=== PATIENT | male | born 1995 | race Caucasian/White ===

== ENCOUNTER 2018-06-10 19:56 | Emergency (ER) | payer OTHER ==
--- NOTE | 2018-06-10 20:16 | EDM.PDOC ---
ED HPI GENERAL MEDICAL PROBLEM - General Chief Complaint: Upper Extremity Injury/Pain Stated Complaint: RT WRIST PAIN Time Seen by Provider: 06/10/18 20:00 Source of Information: Reports: Patient History Limitations: Reports: No Limitations - History of Present Illness INITIAL COMMENTS - FREE TEXT/NARRATIVE: Berto is a 23-year-old employee of [email or web address] was pulling on a bungee cord and it snapped (broke) and resulted in his right dominant ulnar surface striking a metal hook forcefully and has marked pain in his wrist. No loss of sensation or laceration. But he has extensive pain and difficulty moving his wrist. He does chew his fingernails. She is a smoker of 1 pack per day. He has stopped using methamphetamine (smoking) since October 2017. right wrist Pain Score (Numeric/FACES): 7 - Related Data Allergies Allergy/AdvReac Type Severity Reaction Status Date / Time No Known Allergies Allergy Verified 06/10/18 20:10 Home Meds: Home Meds NK [No Known Home Meds] 06/10/18 [History] Review of Systems - Review of Systems Review Of Systems: ROS reveals no pertinent complaints other than HPI. ED EXAM, GENERAL - Physical Exam Exam: See Below Free Text/Narrative:: Pleasant interactive young man who has moderate pain in his right dominant hand/ wrist lateral ulnar fist. He has a cradle with his other arm is reluctant to move his wrist. No compromise and sensation. He has pain moving his fingers because there some much discomfort that radiates to his wrist with any finger motion. His nails on his fingers are slightly shorter than normal.. Exam Limited By: No Limitations General Appearance: Alert, Moderate Distress Eye Exam: Bilateral Eye: Normal Inspection Nose: Normal Inspection, Normal Mucosa, No Blood Throat/Mouth: Normal Inspection, Normal Lips, Normal Teeth, Normal Gums, Normal Oropharynx, Normal Voice, No Airway Compromise Head: Atraumatic, Normocephalic Neck: Normal Inspection, Supple, Non-Tender, Full Range of Motion Cardiovascular: Normal Peripheral Pulses, Regular Rate, Rhythm, No Edema, No Gallop, No JVD, No Murmur, No Rub Peripheral Pulses: 1+: Brachial (L), Brachial (R) GI/Abdominal: Normal Bowel Sounds, Soft, Non-Tender, No Organomegaly, No Distention, No Abnormal Bruit, No Mass (Male) Exam: Deferred Rectal (Males) Exam: Deferred Back Exam: Normal Inspection Extremities: Normal Inspection, Other (He has moderate pain in his right dominant hand/wrist lateral ulnar surface. He has cradled his right wrist with his other arm and is reluctant to move his wrist. No compromise and sensation. He has pain moving his fingers because there is some much discomfort that radiates to his wrist with any finger motion. His nails on his fingers are slightly shorter than normal..) Neurological: Alert, Oriented, CN II-XII Intact, Normal Cognition, Normal Gait, Normal Reflexes, No Motor/Sensory Deficits Psychiatric: Normal Affect, Normal Mood Skin Exam: Warm, Dry, Intact, Normal Color, No Rash Course - Vital Signs Last Recorded V/S: Last Vital Signs Temp 36.8 C 06/10/18 20:00 Pulse 99 06/10/18 20:00 Resp 17 06/10/18 20:00 BP 142/78 H 06/10/18 20:00 Pulse Ox 100 06/10/18 20:00 - Orders/Labs/Meds Orders: Active Orders 24 hr Category Date Time Status Wrist Comp Min 3V Rt [CR] Stat Exams 06/10/18 20:22 Taken Departure - Departure Time of Disposition: 20:20 (Working diagnosis: Contusion, his hand ulnar surface rule out periosteal hematoma. Diagnosis after x-ray completed no fracture. No suggestion hematoma in the bone.) Disposition: Home, Self-Care 01 Condition: Good Clinical Impression: Contusion of bone, Work related injury, History of methamphetamine use - Discharge Information Instructions: Wrist Splint, Adult Referrals: PCP,None [Primary Care Provider] - Forms: ED Department Discharge Additional Instructions: Diagnosis contusion right radius. Limited use pushing pulling and lifting until cleared on Thursday06/14/18 1000 mg tylenol and ibuprofen every 6 hour for pain. - My Orders Last 24 Hours: My Active Orders 06/10/18 20:22 Wrist Comp Min 3V Rt [CR] Stat - Assessment/Plan Last 24 Hours: My Active Orders 06/10/18 20:22 Wrist Comp Min 3V Rt [CR] Stat
--- NOTE | 2018-06-11 10:50 | CR ---
INDICATION: Trauma. RIGHT WRIST: Three views of the right wrist revealed deviation of the volar fat pad slightly, which suggests the possibility of a small wrist joint effusion. No other significant bone or joint abnormality was identified - no fracture or dislocation was seen. MTDD
== END 2018-06-10 21:09 | disposition home or self-care (01) ==
LOC: FB.ED 19:56
DX: S60.211A Contusion of right wrist, initial encounter (principal); Y99.0 Civilian activity done for income or pay; F15.90 Other stimulant use, unspecified, uncomplicated; W22.8XXA Striking against or struck by other objects, initial encounter
CPT/HCPCS: 73110-RT; 99000; 99283-25

== ENCOUNTER 2018-11-15 23:02 | Day surgery (SDC) | payer BC, OTHER ==
[2018-11-15] MEDS ORDERED: Sodium Chloride 0.9% 10 ML Syringe FLUSH PRN (23:25)
[2018-11-15] MEDS ORDERED: Sodium Chloride 0.9% 1,000 ML IV SCH (23:30)
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
[2018-11-15] MEDS ORDERED: Propofol 200 MG/20 ML SDV IV ONE (23:35)
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
[2018-11-15] MEDS ORDERED: Lactated Ringers 1,000 ML IV ONE (23:50)
--- NOTE | 2018-11-16 00:36 | PCM.OPNOTE ---
- General Post-Op/Procedure Note Date of Surgery/Procedure: 11/16/18 Operative Procedure(s): egd with removal of impacted food Findings: food bolus at 20 cm hiatal hernia 10 cm of stomach in the chest Pre Op Diagnosis: food impaction Post-Op Diagnosis: food bolus at 20 cm. hiatal hernia. 10 cm of stomach in the chest Anesthesia Technique: MAC Primary Surgeon: Gwyn Cadena Anesthesia Provider: Ricardo Knowles Complications: None Condition: Good Free Text/Narrative:: see dictation
--- NOTE | 2018-11-16 00:53 | OR ---
DATE OF OPERATION: 11/16/2018 SURGEON: Gwyn Cadena MD PROCEDURE PERFORMED: Removal of food impaction. PREOPERATIVE DIAGNOSIS: Impacted food bolus. POSTOPERATIVE DIAGNOSIS: Impacted food bolus. INDICATIONS FOR PROCEDURE: This is a 23-year-old white male who presented to the emergency room approximately an hour and a half after eating some [place] food at [facility] [email or web address]. He apparently had some impacted food and was unable to swallow and control of saliva. This is a repeat episode for him. He apparently has had several EGDs in [place]. This has happened 3 times before. DESCRIPTION OF OPERATION: After an excellent IV sedation was administered, bite block was inserted and flexible endoscope was passed down the patient's esophagus. At approximately 20 cm, we encountered an impacted chicken food bolus. This was broken up with graspers and Ayala net and removed. We were able eventually to remove the bolus. The scope was advanced to the stomach and to the duodenum. No marked abnormality was noted in the duodenum and the stomach. It is evident that he has a hiatal hernia with approximately 10 cm of the stomach in the chest. GE junction measured approximately 30 cm and approximately 10 cm above what appeared to be the diaphragm. No marked stricture was noted in the patient's esophagus. The patient tolerated the procedure well and will be discharged later this evening. /[id number]
== END 2018-11-16 01:15 | disposition home or self-care (01) ==
LOC: FB.ED 23:02 → FB.SDS 23:34
PROVIDERS: ATTEND Surgery
DX: T18.128A Food in esophagus causing other injury, initial encounter (principal); F17.210 Nicotine dependence, cigarettes, uncomplicated
CPT/HCPCS: 43247; 96360; 99284; J2704; J7120

== ENCOUNTER 2018-12-01 12:10 | Emergency (ER) | payer BC ==
--- NOTE | 2018-12-01 12:29 | EDM.PDOC ---
ED HPI GENERAL MEDICAL PROBLEM - General Stated Complaint: BACK PAIN Time Seen by Provider: 12/01/18 12:29 Source of Information: Reports: Patient History Limitations: Reports: No Limitations - History of Present Illness INITIAL COMMENTS - FREE TEXT/NARRATIVE: 23-year-old male who was helping his friend replace his roof and was pulling some shingles off of the roof and fell off the roof at approximately 10:45 AM today. The house is a two-story house and he fell from the roof to the ground which was a grass covered ground. He landed on his right mid back area and thinks he may have hit his head but he had no loss of consciousness. He did have the "wind knocked out of him". He has had no problems breathing since then except it does increase the pain in his right mid back when he takes a deep breath. He has had no hemoptysis. He has had no nausea or vomiting. He rates the pain as 7-8/10. It is worse with deep breath and with movement and with palpation. He did have urine output prior to coming in and reported there was no blood in his urine. He denies any abdominal pain. He has no neck pain. He has no arm or leg weakness. He is ambulatory into the emergency department. There are no other associated signs or symptoms. There are no other modifying factors. 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 - Past Surgical History Head Surgeries/Procedures: Reports: Craniotomy HEENT Surgical History: Reports: Tonsillectomy Other HEENT Surgeries/Procedures: EGD for food bolus stuck GI Surgical History: Reports: EGD (Multiple EGDs related to his Manning's esophagus and impacted food) Social & Family History - Tobacco Use Smoking Status *Q: Current Every Day Smoker - Caffeine Use Caffeine Use: Reports: Coffee, Energy Drinks, Soda - Alcohol Use Alcohol Use History: Yes Alcohol Use Frequency: Rarely - Recreational Drug Use Recreational Drug Use: Yes Recreational Drug Type: Reports: Amphetamines (Speed) (Clean and sober since 2018.) - Living Situation & Occupation Occupation: Employed (works at [employer]) ED ROS GENERAL - Review of Systems Review Of Systems: See Below Constitutional: Reports: No Symptoms HEENT: Reports: No Symptoms Respiratory: Reports: No Symptoms Cardiovascular: Reports: Chest Pain (Right posterior chest pain) GI/Abdominal: Reports: No Symptoms : Reports: No Symptoms (Reports he had clear, yellow urine just prior to coming in) Musculoskeletal: Reports: Back Pain (Right mid back and posterior chest pain) Skin: Reports: No Symptoms Neurological: Reports: No Symptoms (No loss consciousness) Hematologic/Lymphatic: Reports: No Symptoms Immunologic: Reports: No Symptoms ED EXAM, GENERAL - Physical Exam Exam: See Below Exam Limited By: No Limitations General Appearance: Alert, WD/WN, Moderate Distress, Other (Awake, alert and appropriate.) Eye Exam: Bilateral Eye: EOMI, Normal Inspection, PERRL Ears: Normal External Exam, Hearing Grossly Normal Ear Exam: Bilateral Ear: Auricle Normal Nose: Normal Inspection, Normal Mucosa, No Blood Throat/Mouth: Normal Inspection, Normal Lips, Normal Oropharynx, Normal Voice, No Airway Compromise Head: Atraumatic, Normocephalic Neck: Normal Inspection, Supple, Non-Tender, Full Range of Motion, Other (Full active range of motion in his neck without any problems.) Respiratory/Chest: No Respiratory Distress, Lungs Clear, Normal Breath Sounds, No Accessory Muscle Use, Other (Tender over right posterior chest/mid back) Cardiovascular: Normal Peripheral Pulses, Regular Rate, Rhythm, No Murmur Peripheral Pulses: 2+: Radial (L), Radial (R) GI/Abdominal: Normal Bowel Sounds, Soft, No Mass, Tender (Mildly tender in his right upper abdomen that seems to really be in his back when he presses on his abdomen. He is nontender elsewhere in his abdomen) Back Exam: Paraspinal Tenderness (On the right posterior chest area and mid back area. No crepitus. No subcutaneous emphysema.) Extremities: Normal Inspection, Normal Range of Motion, Non-Tender, No Pedal Edema, Normal Capillary Refill Neurological: Alert, Oriented, CN II-XII Intact, Normal Cognition, No Motor/ Sensory Deficits Skin Exam: Warm, Dry, Intact, Normal Color, No Rash Course - Orders/Labs/Meds Orders: Active Orders 24 hr Category Date Time Status Chest Abdomen Pelvis w Cont [CT] Stat Exams 12/01/18 13:14 Taken Sodium Chloride 0.9% [Saline Flush] Med 12/01/18 12:38 Active 10 ml FLUSH ASDIRECTED PRN Peripheral IV Insertion Adult [OM.PC] Routine Oth 12/01/18 12:38 Ordered Medication Orders Sodium Chloride (Saline Flush) 10 ml FLUSH ASDIRECTED PRN PRN Reason: Keep Vein Open Labs: Laboratory Tests 12/01/18 12/01/18 12/01/18 Range/Units 12:55 12:55 13:12 WBC 7.7 (4.5-12.0) X10-3/uL RBC 5.38 (4.30-5.75) x10(6)uL Hgb 17.1 (13.5-17.8) g/dL Hct 49.8 (30.0-51.3) % MCV 92.6 (80-96) fL MCH 31.8 (27.7-33.6) pg MCHC 34.4 (32.2-35.4) g/dL RDW 11.9 (11.5-15.5) % Plt Count 289 (125-369) X10(3)uL MPV 8.8 (7.4-10.4) fL Neut % (Auto) 57.0 (46-82) % Lymph % (Auto) 29.3 (13-37) % Hays % (Auto) 5.6 (4-12) % Eos % (Auto) 7 H (1.0-5.0) % Baso % (Auto) 1 (0-2) % Neut # (Auto) 4.4 (1.6-8.3) # Lymph # (Auto) 2.3 (0.6-5.0) # Hays # (Auto) 0.4 (0.0-1.3) # Eos # (Auto) 0.5 (0.0-0.8) # Baso # (Auto) 0.1 (0.0-0.2) # Sodium 140 (135-145) mmol/L Potassium 3.9 (3.5-5.3) mmol/L Chloride 104 (100-110) mmol/L Carbon Dioxide 28 (21-32) mmol/L BUN 5 L (7-18) mg/dL Creatinine 1.0 (0.70-1.30) mg/dL Est Cr Clr Drug Dosing TNP Estimated GFR (MDRD) > 60 (>60) BUN/Creatinine Ratio 5.0 L (9-20) Glucose 127 H (80-116) mg/dL Calcium 8.6 (8.6-10.2) mg/dL Total Bilirubin 0.5 (0.1-1.3) mg/dL AST 11 (5-25) IU/L ALT 22 (12-36) U/L Alkaline Phosphatase 113 H (56-112) IU/L Total Protein 6.5 (6.0-8.0) g/dL Albumin 3.7 (3.5-5.2) g/dL Globulin 2.8 g/dL Albumin/Globulin Ratio 1.3 Amylase 40 (25-115) U/L Urine Color Yellow (YELLOW) Urine Appearance Clear (CLEAR) Urine pH 6.0 (5.0-6.5) Ur Specific Wilkinson 1.015 (1.010-1.025) Urine Protein Negative (NEGATIVE) mg/dL Urine Glucose (UA) Normal (NORMAL) mg/dL Urine Ketones Negative (NEGATIVE) mg/dL Urine Occult Blood Negative (NEGATIVE) Urine Nitrite Negative (NEGATIVE) Urine Bilirubin Negative (NEGATIVE) Urine Urobilinogen Normal (NEGATIVE) mg/dL Ur Leukocyte Esterase Moderate H (NEGATIVE) Urine WBC 10-20 H (0-5) Ur Squamous Epith Cells Few H (NS,R,O) Urine Bacteria Moderate H (NS) Meds: Medications Generic Name Dose Route Start Last Admin Trade Name Freq PRN Reason Stop Dose Admin Sodium Chloride 10 ml 12/01/18 12:38 Saline Flush FLUSH ASDIRECTED PRN Keep Vein Open Discontinued Medications Generic Name Dose Route Start Last Admin Trade Name Gale PRN Reason Stop Dose Admin Sodium Chloride 1,000 mls @ 999 mls/hr 12/01/18 12:42 12/01/18 13:15 Normal Saline IV 12/01/18 13:42 999 mls/hr .BOLUS ONE Administration Iopamidol 100 ml 12/01/18 12:52 12/01/18 13:07 Isovue-370 (76%) IV 12/01/18 12:53 90 ml . DIRECTED ONE Administration Ketorolac Tromethamine 30 mg 12/01/18 13:26 12/01/18 13:41 Toradol IVPUSH 12/01/18 13:27 30 mg ONETIME ONE Administration - Radiology Interpretation Free Text/Narrative:: CT scan of the chest, abdomen and pelvis showed no acute abnormality in the chest. No thoracic or lumbar spinal fractures. He did have possible thickening of some loops of the jejunum but there was no free fluid and there is no hematoma and the radiologist felt this may be a nonspecific finding. - Re-Assessments/Exams Free Text/Narrative Re-Assessment/Exam: 12/01/18 14:00: The patient has remained vitally stable. His O2 saturations are normal. I did establish an IV and gave the patient normal saline 1 L as a bolus and he was also given Toradol 30 mg IV. This did help his pain somewhat. His blood tests are reassuringly normal. The CT scan of his chest, abdomen and pelvis showed really no acute and really other than the possible thickening of the jejunal loops but no evidence of trauma. I reexamine the patient's abdomen and he really has no abdominal tenderness except in his right upper abdomen which there is no evidence of liver injury and it may be referred pain to his right mid back. I will call and discuss this with the general surgeon automation operator, Dr. Knight. 12/01/18 14:20: I discussed the patient's case with Dr. Knight and he felt that the CT findings are nonspecific and did not correlate with the patient's injury pattern and with a benign abdominal exam he felt the patient could be discharged home. I discussed this with the patient and he is in agreement with the plans for discharge. I will discharge the patient with a prescription for hydrocodone 5/325 to be used for moderate to severe pain and he may also take ibuprofen for pain as well. I will give the patient 2 days off work. Appropriate precautions and instructions for return to the Emergency Department were given to the patient. Departure - Departure Time of Disposition: 14:48 Disposition: Home, Self-Care 01 Condition: Good (Stable) Clinical Impression: Fall from building Qualifiers: Encounter type: initial encounter Qualified Code(s): W13.9XXA - Fall from, out of or through building, not otherwise specified, initial encounter Contusion of right side of mid back Qualifiers: Encounter type: initial encounter Qualified Code(s): S20.221A - Contusion of right back wall of thorax, initial encounter - Discharge Information Prescriptions: Hydrocodone/Acetaminophen [[place] 5-325 Tablet] 1 - 2 tab PO Q6H PRN #14 tablet PRN Reason: Moderate to severe pain Instructions: Contusion, [id number] Forms: ED Return to Work/School Form Additional Instructions: Your blood tests were reassuringly normal. Your urine test showed no evidence of blood but there was some evidence of infection. You do not have any signs or symptoms of an infection. I did send the urine for culture and if it is positive , we will call you. The CT scans of your chest, abdomen and pelvis which also looked at your thoracic and lumbar spine areas showed no evidence of fracture. As we discussed, there was the nonspecific possible thickening of some of your small bowel intestinal loops but you have no symptoms which support a problem here nor does the trauma you sustained usually cause any kind of problems with your intestines. You should rest. I have given you 2 days off of work and then 3 days of light duty following that. You may take ibuprofen as needed for pain. Medication as prescribed for more severe pain (hydrocodone 5/325). The emergency department for marked increase in pain, trouble breathing, coughing of blood, abdominal pain, unrelenting vomiting, blood in your urine or any other concerning sign or symptom. - My Orders Last 24 Hours: My Active Orders 12/01/18 12:38 Sodium Chloride 0.9% [Saline Flush] 10 ml FLUSH ASDIRECTED PRN Peripheral IV Insertion Adult [OM.PC] Routine 12/01/18 13:14 Chest Abdomen Pelvis w Cont [CT] Stat - Assessment/Plan Last 24 Hours: My Active Orders 12/01/18 12:38 Sodium Chloride 0.9% [Saline Flush] 10 ml FLUSH ASDIRECTED PRN Peripheral IV Insertion Adult [OM.PC] Routine 12/01/18 13:14 Chest Abdomen Pelvis w Cont [CT] Stat
[2018-12-01] MEDS ORDERED: Sodium Chloride 0.9% 10 ML Syringe FLUSH PRN (12:38)
[2018-12-01] MEDS ORDERED: Sodium Chloride 0.9% 1,000 ML IV ONE (12:42)
[2018-12-01] MEDS ORDERED: Iopamidol 755 Mg/ML 100 ML Bottle IV ONE (12:52)
[2018-12-01] MEDS ORDERED: Ketorolac 30 MG/ML SDV IVPUSH ONE (13:26)
--- NOTE | 2018-12-01 15:02 | CT ---
INDICATION: Back and abdominal pain after falling off the roof of a 2-story house. CT CHEST, ABDOMEN, AND PELVIS WITH CONTRAST: Spiral 3.75 mm axial sections were obtained through the chest, abdomen, and pelvis with 90 mL Isovue 370 at 2.1 mL/second, with sagittal and coronal reconstructions, 12/01/18 - no comparisons. Total exam DLP = 617.91 mGy-cm. CT CHEST: Examination of the chest, as noted above, revealed the heart to be normal in size. No pericardial effusion was seen. No mediastinal mass was identified. Major vessels appear to be intact with no leakage identified. No evidence of an active infiltrate, effusion, contusion, or pneumothorax was identified. No displaced fracture site was identified. Spine and ribs appear to be grossly intact. IMPRESSION: Normal CT chest with contrast. CT ABDOMEN AND PELVIS: Examination of the abdomen and pelvis was obtained by CT as noted above. The appendix appeared normal, visualized on axial images #58 through #64 and coronal image #41. No evidence of free air or bowel obstruction was seen. Thickening of the wall of the loops of jejunum, especially proximally, is noted. This is of questionable significance with many etiologies possible. This should be correlated clinically, therefore. Findings would include the possibility of posttraumatic change, as well as Giardia lamblia infestation. The aorta and major vessels appear to be grossly intact. The liver, spleen, gallbladder, adrenals, kidneys, and pancreas appear to be normal. No retroperitoneal mass was seen. Urinary bladder appeared to be intact. No organomegaly, mass lesions, or free fluid collections were identified in the abdomen or pelvis. No displaced fracture site was identified. Bony structures appear to be grossly intact with a minimal tilt of the spine to the left. IMPRESSION: 1. CT of abdomen and pelvis neg for definite posttraumatic change identified. 2. Thickening of the wall of the loops of jejunum, especially proximally, is noted. This is of questionable significance with many etiologies possible. This should be correlated clinically, therefore. Findings would include the possibility of posttraumatic change, as well as Giardia lamblia infestation. Report was called to Dr. Carrillo at 1404 hours on 12/01/18. [facility]
== END 2018-12-01 15:00 | disposition home or self-care (01) ==
LOC: FB.ED 12:10
DX: S20.221A Contusion of right back wall of thorax, initial encounter (principal); K21.9 Gastro-esophageal reflux disease without esophagitis; F17.200 Nicotine dependence, unspecified, uncomplicated; Z79.899 Other long term (current) drug therapy; W13.2XXA Fall from, out of or through roof, initial encounter
CPT/HCPCS: 36415; 71260; 74177; 80053; 81001; 82150; 85025; 87086; 96361; 96374; 99284-25; J1885; J7030; Q9967

== ENCOUNTER 2019-01-22 19:50 | Day surgery (SDC) | payer BC ==
[~2019-01-22 19:50] MED LIST: Lidocaine 2% 5 ML SDV IV ONE; Midazolam 1 MG/ML 2 ML SDV IV ONE; Propofol 200 MG/20 ML SDV IV ONE
--- NOTE | 2019-01-22 20:55 | EDM.PDOC ---
ED HPI GENERAL MEDICAL PROBLEM - General Chief Complaint: General Stated Complaint: FOOD STUCK IN THROAT Time Seen by Provider: 01/22/19 20:54 Source of Information: Reports: Patient History Limitations: Reports: No Limitations - History of Present Illness INITIAL COMMENTS - FREE TEXT/NARRATIVE: 24-year-old male who reports at 6:30 PM tonight he was eating a hot pocket with pepperoni and when he swallowed he felt that it stuck in his throat. He has had this happen many times in the past and reports that this is the same feeling that he has had before. He is not having any trouble breathing but he is unable to swallow even his own saliva. He has retched multiple times and has been unable to remove anything while doing this. He has some discomfort in his chest at his sternal notch. He feels that this is where the food is stuck. He states that this is always the place where he feels the discomfort. He rates the pain as moderate. He had apparently been eating and drinking normally prior to this. There are no other associated signs or symptoms. There are no other modifying factors. 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 - Past Surgical History Head Surgeries/Procedures: Reports: Craniotomy HEENT Surgical History: Reports: Tonsillectomy GI Surgical History: Reports: EGD (Multiple EGDs related to his Manning's esophagus and impacted food) Social & Family History - Family History Family Medical History: Noncontributory - Tobacco Use Smoking Status *Q: Current Every Day Smoker - Caffeine Use Caffeine Use: Reports: Coffee, Energy Drinks, Soda - Alcohol Use Alcohol Use History: No - Living Situation & Occupation Living situation: Reports: with Significant Other Occupation: Employed (works at [employer]) ED ROS GENERAL - Review of Systems Review Of Systems: See Below Constitutional: Reports: No Symptoms HEENT: Reports: No Symptoms Respiratory: Reports: No Symptoms Cardiovascular: Reports: Chest Pain (Feeling of something stuck in his esophagus ) GI/Abdominal: Reports: Nausea, Vomiting Musculoskeletal: Reports: No Symptoms Skin: Reports: No Symptoms Neurological: Reports: No Symptoms Hematologic/Lymphatic: Reports: No Symptoms Immunologic: Reports: No Symptoms ED EXAM, GENERAL - Physical Exam Exam: See Below Exam Limited By: No Limitations General Appearance: Alert, WD/WN, Moderate Distress Eye Exam: Bilateral Eye: EOMI, Normal Inspection, PERRL Ears: Normal External Exam, Hearing Grossly Normal Ear Exam: Bilateral Ear: Auricle Normal Nose: Normal Inspection, Normal Mucosa, No Blood Throat/Mouth: Normal Voice, No Airway Compromise, Other (Somewhat dry membranes) Head: Atraumatic, Normocephalic Neck: Normal Inspection, Supple, Non-Tender, Full Range of Motion Respiratory/Chest: No Respiratory Distress, Normal Breath Sounds, No Accessory Muscle Use, Chest Non-Tender, Wheezing (Scattered wheezes that clear with cough. ) Cardiovascular: Normal Peripheral Pulses, Regular Rate, Rhythm, No JVD Peripheral Pulses: 2+: Radial (L), Radial (R) GI/Abdominal: Normal Bowel Sounds, Soft, Non-Tender, No Mass Back Exam: Normal Inspection Extremities: Normal Inspection, Normal Range of Motion, Non-Tender, No Pedal Edema, Normal Capillary Refill Neurological: Alert, Oriented, CN II-XII Intact, Normal Cognition, No Motor/ Sensory Deficits Psychiatric: Other (Somewhat angry) Skin Exam: Warm, Dry, Intact, Normal Color, No Rash Course - Vital Signs Last Recorded V/S: Last Vital Signs Temp 36.1 C 01/22/19 23:05 Pulse 83 01/22/19 23:05 Resp 16 01/22/19 23:05 BP 119/66 01/22/19 23:05 Pulse Ox 98 01/22/19 23:05 - Orders/Labs/Meds Orders: Active Orders 24 hr Category Date Time Status Sodium Chloride 0.9% [Normal Saline] 1,000 ml Med 01/22/19 22:55 Active IV ASDIRECTED Sodium Chloride 0.9% [Saline Flush] Med 01/22/19 21:32 Active 10 ml FLUSH ASDIRECTED PRN Peripheral IV Insertion Adult [OM.PC] Routine Oth 01/22/19 21:32 Ordered Medication Orders Sodium Chloride (Normal Saline) 1,000 mls @ 150 mls/hr IV ASDIRECTED ROSA ISELA Last Admin: 01/22/19 22:55 Dose: 150 mls/hr Sodium Chloride (Saline Flush) 10 ml FLUSH ASDIRECTED PRN PRN Reason: Keep Vein Open Meds: Medications Generic Name Dose Route Start Last Admin Trade Name Freq PRN Reason Stop Dose Admin Sodium Chloride 1,000 mls @ 150 mls/hr 01/22/19 22:55 01/22/19 22:55 Normal Saline IV 150 mls/hr ASDIRECTED ROSA ISELA Administration Sodium Chloride 10 ml 01/22/19 21:32 Saline Flush FLUSH ASDIRECTED PRN Keep Vein Open Discontinued Medications Generic Name Dose Route Start Last Admin Trade Name Freq PRN Reason Stop Dose Admin Glucagon 1 mg 01/22/19 22:27 01/22/19 22:46 Glucagen IVPUSH 01/22/19 22:28 1 mg ONETIME ONE Administration Sodium Chloride 1,000 mls @ 999 mls/hr 01/22/19 21:32 01/22/19 21:50 Normal Saline IV 01/22/19 22:32 999 mls/hr .BOLUS ONE Administration Lorazepam 0.5 mg 01/22/19 22:27 01/22/19 22:43 Ativan IVPUSH 01/22/19 22:28 0.5 mg ONETIME ONE Administration - Re-Assessments/Exams Free Text/Narrative Re-Assessment/Exam: 01/22/19 21:30: Patient with signs and symptoms of impacted food in his esophagus. I did call and discussed patient's case with Dr. Dooley and he has directed that I call the OR crew and he would be coming to see the patient. We had established an IV for the patient and will be given the patient IV normal saline bolus. Initially when I went to see the patient, he was outside smoking a cigarette. When I did see the patient, he was quite upset cause of day and was somewhat verbally to toward me. It was very busy at the time that he presented and I tried to explain this to the patient but he continued to be quite upset. We will continue to try to provide the best care possible for this patient. Although, I have instructed him to try to calm down and restrain from any further obscenities toward the staff. 01/22/19 22:33: Dr. Dooley has seen the patient, however, there is an emergency being performed now. Therefore, the EGD on the patient has been delayed secondary to this. I discussed with the patient giving medications to try to help relax his esophagus to get this food impaction to pass and he is willing to give this a try. Therefore, the patient will receive glucagon 1 mg and Ativan 0.5 mg IV and after 5-10 minutes he will be given small amount of carbonated beverage by mouth. 01/22/19 23:00: Patient has received the glucagon and Ativan IV and he attempted to swallow a small amount of carbonated beverage approximate 5 minutes after these medications were given and the patient had vomiting and was unable to pass any fluids. At this point, we will keep the patient nothing by mouth. We will not try any other attempts to help the patient pass the obstruction on his own and will await Dr. Dooley and definitive EGD treatment. Departure - Departure Time of Disposition: 23:55 Disposition: Refer to Observation Condition: Good (Stable) Clinical Impression: Impacted esophageal foreign body Qualifiers: Encounter type: initial encounter Qualified Code(s): T18.108A - Unspecified foreign body in esophagus causing other injury, initial encounter - Discharge Information Referrals: PCP,None [Primary Care Provider] - Forms: ED Department Discharge - My Orders Last 24 Hours: My Active Orders 01/22/19 21:32 Sodium Chloride 0.9% [Saline Flush] 10 ml FLUSH ASDIRECTED PRN Peripheral IV Insertion Adult [OM.PC] Routine 01/22/19 22:55 Sodium Chloride 0.9% [Normal Saline] 1,000 ml IV ASDIRECTED - Assessment/Plan Last 24 Hours: My Active Orders 01/22/19 21:32 Sodium Chloride 0.9% [Saline Flush] 10 ml FLUSH ASDIRECTED PRN Peripheral IV Insertion Adult [OM.PC] Routine 01/22/19 22:55 Sodium Chloride 0.9% [Normal Saline] 1,000 ml IV ASDIRECTED
[2019-01-22] MEDS ORDERED: Sodium Chloride 0.9% 1,000 ML IV ONE (21:32)
[2019-01-22] MEDS ORDERED: Sodium Chloride 0.9% 10 ML Syringe FLUSH PRN (21:32)
[2019-01-22] MEDS ORDERED: Glucagon,Human Recombinant 1 MG Vial IVPUSH ONE (22:27)
[2019-01-22] MEDS ORDERED: LORazepam 2 MG/ML SDV IVPUSH ONE (22:27)
[2019-01-22] MEDS ORDERED: Sodium Chloride 0.9% 1,000 ML IV SCH (22:55)
--- NOTE | 2019-01-23 00:35 | PCM.OPNOTE ---
- General Post-Op/Procedure Note Date of Surgery/Procedure: 01/23/19 Operative Procedure(s): Esophagogastroscopy with removal of esophgeal foreign body Findings: Food bolus lodged in distal esophagus distal esophageal inflammation with distal esophageal stenosis Pre Op Diagnosis: Esophageal foreign body Post-Op Diagnosis: Same Anesthesia Technique: MAC Primary Surgeon: Sandro Doloey Pathology: none EBL in mLs: 0 Complications: None Condition: Good
--- NOTE | 2019-01-23 02:03 | HP ---
ADMISSION DATE: 01/22/2019 HISTORY OF PRESENT ILLNESS: This 24-year-old male was eating hot pocket tonight approximately 6:30 when he noted food got stuck in his esophagus, and he feels as if that food is still lodged there. Since that episode, he has not been able to swallow his saliva. He does complain of pain in the upper chest and throat area, but denies any respiratory difficulty. The patient states that he frequently has dysphagia with eating and he has had multiple previous episodes where upper endoscopy was required to dislodge food boluses from his esophagus. The last time was in October of this year. PAST MEDICAL HISTORY: His past medical history shows his only routine medication is Prilosec. He has no known drug allergies. He has had multiple previous extremity surgeries. He denies any previous problems with anesthesia. SOCIAL HISTORY: The patient is not . He works at [employer]. REVIEW OF SYSTEMS: He denies any recent acute cold or sore throat symptoms. He does note a chronic cough for several months. He has had no chest pain or palpitations. Generally, his appetite is satisfactory. PHYSICAL EXAM: GENERAL: The patient is an alert and adult male. He is in no acute distress. His voice is normal. There is no indication of respiratory distress or dyspnea. NECK: Supple. No cervical masses or cervical tenderness. HEART: Regular. LUNGS: Clear. ABDOMEN: Soft, nontender. EXTREMITIES: Show no edema. IMPRESSION: Foreign body of the esophagus. RECOMMENDATIONS: Advised EGD for removal of esophageal foreign body. I have discussed the proposed operative procedure with the patient. Indications and risks reviewed. He agrees to proceed. This will be performed when the operating room is available nancy. /[id number] LAMONT/LAURENL
--- NOTE | 2019-01-23 02:14 | OR ---
DATE OF OPERATION: 01/23/2019 SURGEON: Sandro Dooley MD PREOPERATIVE DIAGNOSIS: Esophageal foreign body (food). POSTOPERATIVE DIAGNOSIS: Esophageal foreign body (food). OPERATION PERFORMED: Esophagogastroscopy with removal of esophageal foreign body. INDICATIONS FOR SURGERY: This 24-year-old male has developed obstruction of his esophagus secondary to food, which he was eating recently. This is a recurring problem for this patient and he has had to have removal of food boluses from his esophagus several times in the past. FINDINGS: The patient has a bolus of food in the distal aspect of his esophagus. The esophagus does show evidence of inflammation in its distal 5cm. There is some generalized narrowing in this area, which appears to be secondary to benign inflammation. There is no evidence of extrinsic esophageal compression or other intrinsic lesion. The stomach mucosa as viewed, appeared unremarkable. PROCEDURE IN DETAIL: The patient was taken to the procedure room. He was given intravenous sedation and the esophagus was intubated with the Olympus gastroscope under direct visualization. As the scope was carefully advanced, the food bolus was identified in the lower portion of the esophagus and using gentle pressure with the gastroscope, the food bolus was able to be easily pushed down through the distal esophagus and on into the gastric lumen. Repeated examination of the esophagus did not show any additional food bolus in the esophagus. It appeared to be all advanced down into the stomach and examination of the esophageal lining did not show any indication of esophageal injury. The gastroscope was then removed and the patient was taken from the procedure room in satisfactory condition. ESTIMATED BLOOD LOSS: Zero. COMPLICATIONS: None. PROGNOSIS: Good. /[id number] LAMONT/KOFI HARPERD
== END 2019-01-23 01:20 | disposition home or self-care (01) ==
LOC: FB.ED 19:50 → FB.SDS 01-23 00:15 → FB.ED 01-23 01:20
PROVIDERS: ATTEND Surgery
DX: T18.108A Unspecified foreign body in esophagus causing other injury, initial encounter (principal); K21.9 Gastro-esophageal reflux disease without esophagitis; Z88.8 Allergy status to other drugs, medicaments and biological substances
CPT/HCPCS: 43247; 96361; 96374; 96375; 99283; J1610; J2001; J2060; J2250; J2704; J7030

== ENCOUNTER 2020-07-03 18:24 | Emergency (ER) | payer BC ==
[2020-07-03] MEDS ORDERED: Sodium Chloride 0.9% 1,000 ML IV ONE (18:35)
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
--- NOTE | 2020-07-04 07:01 | PCM.EKG ---
#1 Interpretation EKG Date: 07/03/20 Time: 18:27 Rhythm: NSR Rate (Beats/Min): 85 [place]: Normal P-Wave: Present QRS: Normal ST-T: Normal QT: Normal Comparison: NA - No Prior EKG EKG Interpretation Comments: NSR
== END 2020-07-03 19:20 | disposition left against medical advice (07) ==
LOC: FB.ED 18:24
DX: T42.4X1A Poisoning by benzodiazepines, accidental (unintentional), initial encounter (principal); E87.6 Hypokalemia; F19.10 Other psychoactive substance abuse, uncomplicated; Z88.8 Allergy status to other drugs, medicaments and biological substances; Z72.0 Tobacco use
CPT/HCPCS: 36415; 80053; 80305-QW; 80307; 85025; 93005; 99283; 99284-25; J7030

== ENCOUNTER 2021-05-28 12:08 | Emergency (ER) | payer SELFPAY | END 2021-05-28 12:50 | disposition home or self-care (01) | LOC: FB.ED 12:08 | DX: K04.7 Periapical abscess without sinus (principal); Z88.8 Allergy status to other drugs, medicaments and biological substances | CPT/HCPCS: 99283 ==

== ENCOUNTER 2023-11-14 05:37 | Emergency (ER) | payer SELFPAY ==
[2023-11-14] MEDS: Iopamidol 755 Mg/ML 100 ML Bottle IV SCH (06:22)
[2023-11-14 06:29] LABS: BASOPHILS ABSOLUTE AUTO 0.1 x10-3/uL (0.0-0.3); BASOPHILS PERCENT AUTO 0.8 % (0.3-3.8); EOSINOPHILS ABSOLUTE AUTO 0.2 x10-3/uL (0.0-0.6); EOSINOPHILS PERCENT AUTO 1.3 % (0.1-6.8); HEMATOCRIT 43.5 % (38.3-50.1); HEMOGLOBIN 14.9 g/dL (12.9-17.7); LYMPHOCYTES ABSOLUTE AUTO 2.7 x10-3/uL (0.5-4.5); LYMPHOCYTES PERCENT AUTO 23.8 % (15.8-45.3); MEAN CORPUSCULAR HEMOGLOBIN 30.7 pg (27.0-33.3); MEAN CORPUSCULAR HGB CONC 34.2 g/dL (28.7-35.3); MEAN CORPUSCULAR VOLUME 89.8 fL (80.8-98.7); MEAN PLATELET VOLUME 8.5 fL (6.7-11.0); MONOCYTES ABSOLUTE AUTO 0.6 x10-3/uL (0.0-1.2); MONOCYTES PERCENT AUTO 5.2 % (5.5-15.2); NEUTROPHILS ABSOLUTE AUTO 7.7 x10-3/uL (1.7-6.9); NEUTROPHILS PERCENT AUTO 68.9 % (40.3-71.8); PLATELET COUNT,PLT 242 x10(3)uL (117-477); RED BLOOD CELL COUNT 4.84 x10(6)uL (3.90-5.90); RED CELL DISTRIBUTION WIDTH 13.1 % (12.4-15.0); WHITE BLOOD CELL COUNT,WBC 11.2 x10-3/uL (3.2-10.1)
[2023-11-14 06:35] LABS: BLOOD UREA NITROGEN,BUN 8 mg/dL (7-18); BUN/CREATININE RATIO 8.9 (9-20); CALCIUM 7.9 mg/dL (8.6-10.2); CARBON DIOXIDE,CO2 26 mmol/L (21-32); CHLORIDE,CL 101 mmol/L (100-110); CREATININE 0.9 mg/dL (0.70-1.30); EST CRCL DRUG DOSING (CG) 114.25 mL/min; ESTIMATED GFR 119 mL/min (>60); GLUCOSE RANDOM 97 mg/dL (80-116); POTASSIUM,K 3.1 mmol/L (3.5-5.3); SODIUM,NA 137 mmol/L (135-145)
[2023-11-14 06:41] LABS: A/G RATIO 1.4; ALANINE AMINOTRANSFERASE,ALT 24 U/L (12-36); ALBUMIN 3.5 g/dL (3.5-5.2); ALKALINE PHOSPHATASE 99 IU/L (56-112); ASPARTATE AMNIOTRANSFERASE,AST 29 IU/L (5-25); BILIRUBIN TOTAL 0.6 mg/dL (0.1-1.3); PROTEIN TOTAL,TP 6.1 g/dL (6.0-8.0)
[2023-11-14 07:27] LABS: BILIRUBIN,URINE NEGATIVE (NEGATIVE); GLUCOSE,URINE NORMAL (NORMAL); KETONES,URINE NEGATIVE (NEGATIVE); LEUKOCYTE ESTERASE,URINE NEGATIVE (NEGATIVE); NITRITE,URINE NEGATIVE (NEGATIVE); OCCULT BLOOD,URINE NEGATIVE (NEGATIVE); PH,URINE 6.5 (5.0-6.5); PROTEIN,URINE NEGATIVE (NEGATIVE); UROBILINOGEN,URINE NORMAL (NEGATIVE)
[2023-11-14 07:33] LABS: AMPHETAMINES SCREEN, URINE POSITIVE (NEGATIVE); BARBITURATE SCREEN,URINE NEGATIVE (NEGATIVE); BENZODIAZEPINES SCREEN,URINE NEGATIVE (NEGATIVE); METHADONE SCREEN, URINE NEGATIVE (NEGATIVE); METHAMPHETAMINE SCREEN, URINE POSITIVE (NEGATIVE); OXYCODONE SCREEN,URINE NEGATIVE (NEGATIVE); THC SCREEN,URINE POSITIVE (NEGATIVE)
[2023-11-14 07:34] LABS: APPEARANCE,URINE CLEAR (CLEAR); BACTERIA,URINE NOT SEEN (NS); BUPRENORPHINE SCREEN,URINE NEGATIVE (NEGATIVE); COLOR,URINE YELLOW (YELLOW); RBC,URINE 0-5 (0-5); SQUAMOUS EPITHELIAL CELLS,UR RARE (NS,R,O); WBC,URINE 0-5 (0-5)
[2023-11-14 07:35] LABS: AMORPHOUS SEDIMENT,URINE FEW
[2023-11-14] MEDS: Lidocaine 2% Viscous Solution 15 ML UD PO ONE (07:49)
[2023-11-14] MEDS: Potassium Chloride 20 MEQ Tab.ER PO ONE (07:49)
== END 2023-11-14 08:35 | disposition home or self-care (01) ==
LOC: FB.ED 05:37
DX: S02.5XXA Fracture of tooth (traumatic), initial encounter for closed fracture (principal); S01.112A Laceration without foreign body of left eyelid and periocular area, initial encounter; S16.1XXA Strain of muscle, fascia and tendon at neck level, initial encounter; S50.12XA Contusion of left forearm, initial encounter; S30.0XXA Contusion of lower back and pelvis, initial encounter; E87.6 Hypokalemia; Y04.8XXA Assault by other bodily force, initial encounter; Z88.8 Allergy status to other drugs, medicaments and biological substances
CPT/HCPCS: 12014; 36415; 70450; 70486; 71260; 72125; 73080; 74177; 80053; 80307; 81001; 85025; 86140; 99284; A9270; Q9967